=== PATIENT | male | born 1965 ===

== ENCOUNTER → 2022-02-06 | Outpatient (CLI) | payer MEDICAID ==
[2022-02-06 22:31] LABS: Basophils # (A) 0.04 X 10*3/uL (0.00-0.10); Basophils % (A) 0.8 %; Eosinophils # (A) 0.15 X 10*3/uL (0.04-0.35); Eosinophils % (A) 2.9 %; HCT 42.2 % (39.6-50.0); Immature Grans, Automated 0.2 %; Lymphocytes % (A) 40.2 %; MCH 30.3 pg (27.0-32.0); MCHC 30.8 g/dL (32.0-37.0); MCV 98.4 fL (80.0-97.0); Mean Platelet Volume 10.5 fL (9.5-12.2); Monocytes % (A) 5.7 %; NRBC Per 100 WBC 0 /100 WBCS (0.0-0.0); Neutrophils # (A) 2.62 X 10*3/uL (1.80-7.70); Neutrophils % (A) 50.2 %; Platelet Count 245 X 10*3/uL (140-440); RBC 4.29 X 10*6/uL (4.40-5.60); RDW 11.6 % (11.5-14.5); WBC 5.22 X 10*3/uL (4.50-10.00)
[2022-02-06 23:32] LABS: ALT 37 U/L (10-49); AST 21 U/L (14-35); African American GFR (CKD) 116.8 (60.0-200.0); Albumin 4.7 g/dL (3.8-4.9); Alkaline Phosphatase 117 U/L (41-126); Blood Urea Nitrogen 16.4 mg/dL (9.0-27.0); Calcium 9.6 mg/dL (8.7-10.3); Carbon Dioxide 25.6 mmol/L (20.0-27.5); Chloride 104 mmol/L (96-109); Chol/HDL Ratio 3.23 Ratio; Globulin 2.2 g/dL (1.6-3.3); Glucose 85 mg/dL (70-110); LDL Cholesterol,Calculated 85.8 mg/dL (0.0-131.0); Non-African American GFR(CKD) 100.8 (60.0-200.0); Sodium 139 mmol/L (135-145); Total Protein 6.9 g/dL (6.2-8.2)
== END | disposition home or self-care (01) ==
LOC: LABWHC1 16:15
PROVIDERS: ATTEND Family Medicine
DX: E78.2 Mixed hyperlipidemia (principal); I10 Essential (primary) hypertension; Z80.9 Family history of malignant neoplasm, unspecified
CPT/HCPCS: 36415; 80053; 80061; 84153; 85025

== ENCOUNTER → 2022-11-28 | Outpatient (CLI) | payer MEDICAID ==
[2022-11-29 01:50] LABS: Basophils # (A) 0.06 X 10*3/uL (0.00-0.10); Eosinophils # (A) 0.25 X 10*3/uL (0.04-0.35); Eosinophils % (A) 4.1 %; HGB 12.6 d/dL (13.0-17.0); Lymphocytes # (A) 2.33 X 10*3/uL (0.90-5.00); Lymphocytes % (A) 38.5 %; MCH 29.9 pg (27.0-32.0); MCHC 30.7 d/dL (32.0-37.0); MCV 97.2 FL (80.0-97.0); Mean Platelet Volume 10.8 FL (9.5-12.2); Monocytes # (A) 0.36 X 10*3/uL (0.20-1.00); NRBC Per 100 WBC 0 X 10*3/uL (0.00-0.01); Neutrophils # (A) 3.04 X 10*3/uL (1.80-7.70); Neutrophils % (A) 50.2 %; Platelet Count 206 X 10*3/uL (140-440); RBC 4.22 X 10*6/uL (4.40-5.60); RDW 11.9 % (11.5-14.5); WBC 6.05 X 10*3/uL (4.50-10.00)
[2022-11-29 02:27] LABS: ALT 28 U/L (10-49); AST 22 U/L (14-35); Albumin 4.5 d/dL (3.8-4.9); Albumin/Globulin Ratio 1.96 Ratio (1.60-3.17); Alkaline Phosphatase 110 U/L (41-126); BUN/Creat Ratio 16.25 Ratio (12.00-20.00); Calcium 9.2 mg/dL (8.7-10.3); Chloride 101 mmol/L (96-109); Chol/HDL Ratio 3.27 Ratio; Globulin 2.3 d/dL (1.6-3.3); Glucose 77 mg/dL (70-110); LDL Cholesterol,Calculated 76.7 mg/dL (0.0-131.0); Potassium 4.1 mmol/L (3.5-5.5); Sodium 139 mmol/L (135-145); Total Bilirubin 0.8 mg/dL (0.3-1.2); Total Protein 6.8 d/dL (6.2-8.2)
[2022-11-29 02:28] LABS: Prostate Specific Antigen 0.98 ng/mL (0.000-3.500)
== END | disposition home or self-care (01) ==
LOC: LABWHC1 16:15
PROVIDERS: ATTEND Family Medicine
DX: Z00.00 Encounter for general adult medical examination without abnormal findings (principal); Z12.5 Encounter for screening for malignant neoplasm of prostate
CPT/HCPCS: 36415; 80053; 80061; 84153; 85025

== ENCOUNTER 2023-11-30 13:06 | Day surgery (SDC) | payer MEDICAID ==
[2023-11-25 15:55] VITALS: BMI 23.6
[~2023-11-30 13:06] MED LIST: HEPARIN SODIUM,PORCINE 5,000 UNIT/ML 1 ML VIAL SQ PRN; HYDROmorphone 0.5 MG/0.5 ML SYRINGE IVP PRN; LIDOCAINE 1% (10MG/ML) FOR IV START INTRADERMA PRN; Pre Op ABX Message 1 EACH MISC MISCELLANE ONE
--- NOTE | 2023-11-30 13:36 | P.GSHP ---
History of Present Illness H&P Date: 11/30/23 Chief Complaint: Left axillary lesion 58-year-old male here for excision left axillary lesion. Increasing in size. Sore at times. Patient with history of colon cancer in the past. Past Medical History Past Medical History: Cancer, Chest Pain / Angina, Hyperlipidemia, Hypertension Additional Past Medical History / Comment(s): colon CA History of Any Multi-Drug Resistant Organisms: None Reported Past Surgical History: Bowel Resection Additional Past Surgical History / Comment(s): SMR for deviated septum Past Anesthesia/Blood Transfusion Reactions: No Reported Reaction Past Psychological History: No Psychological Hx Reported Smoking Status: Never smoker Past Alcohol Use History: None Reported Past Drug Use History: None Reported - Past Family History Mother Family Medical History: Cancer Father Family Medical History: Myocardial Infarction ([place]) Medications and Allergies Home Medications Medication Instructions Recorded Confirmed Type Aspirin [Adult Low Dose Aspirin EC] 81 mg PO HS 11/25/23 11/25/23 History Atorvastatin [Lipitor] 80 mg PO HS 11/25/23 11/25/23 History lisinopriL [Lisinopril] 10 mg PO HS 11/25/23 11/25/23 History Allergies Allergy/AdvReac Type Severity Reaction Status Date / Time isoniazid Allergy Rash/Hives Verified 11/30/23 13:30 Latex, Natural Rubber Allergy Rash/Hives Verified 11/25/23 15:43 Surgical - Exam Physical exam: General: Well-developed, well-nourished HEENT: Normocephalic, sclerae nonicteric Abdomen: Nontender, nondistended Extremities: No edema, 1.5 cm left axillary mass adherent to the skin, no drainage, no redness Neuro: Alert and oriented Assessment and Plan (1) Mass in armpit Narrative/Plan: Will proceed with excision left axillary mass. Risks of bleeding, infection, recurrence reviewed. He understands and wishes to proceed. Current Visit: Yes Status: Acute Code(s): R22.30 - LOCALIZED SWELLING, MASS AND LUMP, UNSPECIFIED UPPER LIMB SNOMED Code(s): 615784971
[2023-11-30 13:42] VITALS: TEMP 97.5
[2023-11-30] MEDS: LACTATED RINGERS 1,000 ML IV SCH (13:45)
[2023-11-30] MEDS: IV FLUID CONTINUATION 1,000 ML IV ONE (13:45)
[2023-11-30] MEDS: ONDANSETRON 4 MG/2 ML VIAL IVP ONE (13:46)
[2023-11-30] MEDS: ACETAMINOPHEN TAB 500 MG TAB PO PRN (13:46)
[2023-11-30] MEDS ORDERED: PROPOFOL 10 MG/ML 20 ML VIAL IV ONE (13:54)
[2023-11-30] MEDS ORDERED: fentaNYL (PF) 50 MCG/ML 2 ML AMP ONE (13:54)
[2023-11-30] MEDS ORDERED: MIDAZOLAM 2 MG/2 ML VIAL ONE (13:54)
[2023-11-30] MEDS: LACTATED RINGERS 1,000 ML IV ONE (13:59)
[2023-11-30] MEDS: BUPIVACAINE (PF) 0.25% 30 ML VIAL SQ ONE (14:15)
[2023-11-30] MEDS ORDERED: ACETAMINOPHEN TAB 325 MG TAB PO PRN (14:52)
[2023-11-30] MEDS ORDERED: NALOXONE 0.4 MG/ML 1 ML VIAL IV PRN (14:52)
--- NOTE | 2023-11-30 14:54 | P.OP ---
Date of Procedure: 11/30/23 Procedure(s) Performed: PREOPERATIVE DIAGNOSIS: Left axillary lesion POSTOPERATIVE DIAGNOSIS: Same PROCEDURE: Excision left axillary lesion with intermediate closure SURGEON: Antonina EBL: 1 cc ANESTHESIA: Sedation and local COMPLICATIONS: None OPERATIVE PROCEDURE: Patient placed in the supine position. The patient's left axilla was prepped and draped sterilely. An elliptical incision was made encompassing a palpable mass. The seem to be adherent to the skin and in the subcutaneous layer this had the appearance of a probable sebaceous cyst. This measured 1.8 x 1.5 cm. This was fully excised. This was sent to pathology. Subcutaneous tissues were then closed using 3-0 Vicryl sutures. Skin closed using 4-0 Monocryl sutures. Skin glue was then applied. DISPOSITION: Stable to recovery room
[2023-11-30 14:58] VITALS: PULSE 70
[2023-11-30 15:53] VITALS: BP 118/76; RESP 20
== END 2023-11-30 15:43 | disposition home or self-care (01) ==
LOC: OR 13:06
PROVIDERS: ATTEND Surgery
CPT/HCPCS: 88304

== ENCOUNTER → 2024-08-17 | Outpatient (CLI) | payer MEDICAID ==
--- NOTE | 2024-08-17 09:24 | US ---
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 TECHNIQUE: Grayscale imaging of the bilateral kidneys and urinary bladder: FINDINGS: EXAM MEASUREMENTS: Right Kidney: 10.5 x 4.5 x 4.7 cm Left Kidney: 10.2 x 5.5 x 4.2 cm Post Void Residual Volume: 15.92 mL Right Kidney: No hydronephrosis or masses seen Left Kidney: Hypoechoic area seen medial 3.2 x 3.7 x 3.1 cm Bladder: Anechoic Bilateral Jets seen: left only Normal Post Void Residual: yes There is no evidence for hydronephrosis at this point in time. No nephrolithiasis is seen. No sadie s are identified. The urinary bladder is anechoic. IMPRESSION: 1. No evidence for acute process. 2. Left renal lesion. Complete evaluation with MRI renal mass protocol is recommended if not perform ed at outside institution. [facility], , 08/17/2024 9:21 AM
== END | disposition home or self-care (01) ==
LOC: RADUSWWP 08:31
PROVIDERS: ATTEND Family Medicine
DX: D17.71 Benign lipomatous neoplasm of kidney (principal); N28.9 Disorder of kidney and ureter, unspecified
CPT/HCPCS: 76770